=== PATIENT | male | born 1960 | race Caucasian/White ===

== ENCOUNTER 2018-12-06 09:17 | Outpatient (CLI) | payer BC ==
[2018-12-06 10:44] LABS: ALT ALANINE AMINOTRANSFERASE 41 IU/L (10-60); AST ASPARTATE AMINOTRANSFERASE 37 IU/L (10-42); BUN - BLOOD UREA NITROGEN 17 mg/dL (6-20); CARBON DIOXIDE - CO2 28 mmol/L (21-32); CHLORIDE 107 mmol/L (101-111); CHOL/HDL RATIO 4.7 (<5.0); CHOLESTEROL 169 mg/dL; CREATININE 0.9 mg/dL (0.6-1.2); GFR - MDRD 86 (>89); HDL CHOLESTEROL 36 mg/dL; LDL CHOLESTEROL,CALCULATED 85 mg/dL; LDL/HDL RATIO 2.4 (<3.6); SODIUM 141 mmol/L (135-145); VLDL CHOLESTEROL 48 mg/dL
== END 2018-12-06 09:18 | disposition home or self-care (01) ==
LOC: LAB 09:17
PROVIDERS: ATTEND Internal Medicine Cardiovascular Disease
DX: E78.49 Other hyperlipidemia (principal); I10 Essential (primary) hypertension
CPT/HCPCS: 36415; 80051; 80061; 81599; 82172; 82565; 83721; 84450; 84460; 84520

== ENCOUNTER 2019-02-14 16:07 | Outpatient (CLI) | payer BC | END 2019-02-14 16:08 | disposition home or self-care (01) | LOC: LAB 16:07 | PROVIDERS: ATTEND Internal Medicine Cardiovascular Disease | DX: I10 Essential (primary) hypertension (principal) | CPT/HCPCS: 36415; 80051; 82565; 84520 ==

== ENCOUNTER 2020-03-05 17:23 | Outpatient (CLI) | payer BC | END 2020-03-05 17:24 | disposition home or self-care (01) | LOC: COV 17:23 | PROVIDERS: ATTEND Family Medicine | DX: R05 Cough (principal); R06.02 Shortness of breath; R53.83 Other fatigue; R09.81 Nasal congestion; R11.0 Nausea; Z20.828 Contact with and (suspected) exposure to other viral communicable diseases ==

== ENCOUNTER 2020-03-17 08:40 | Outpatient (CLI) | payer BC ==
[2020-03-17 09:44] LABS: ALT ALANINE AMINOTRANSFERASE 47 IU/L (10-60); AST ASPARTATE AMINOTRANSFERASE 43 IU/L (10-42); BUN - BLOOD UREA NITROGEN 18 mg/dL (6-20); CARBON DIOXIDE - CO2 24 mmol/L (21-32); CHLORIDE 104 mmol/L (101-111); CHOL/HDL RATIO 4.7 (<5.0); CHOLESTEROL 154 mg/dL; CREATININE 0.8 mg/dL (0.6-1.2); HDL CHOLESTEROL 33 mg/dL; LDL CHOLESTEROL,CALCULATED 67 mg/dL; SODIUM 137 mmol/L (135-145); VLDL CHOLESTEROL 54 mg/dL
== END 2020-03-17 08:41 | disposition home or self-care (01) ==
LOC: LAB 08:40
PROVIDERS: ATTEND Internal Medicine Cardiovascular Disease
DX: E78.49 Other hyperlipidemia (principal); I10 Essential (primary) hypertension
CPT/HCPCS: 36415; 80051; 80061; 81599; 82172; 82565; 83721; 84450; 84460; 84520

== ENCOUNTER 2020-06-10 06:59 | Outpatient (CLI) | payer BC | END 2020-06-10 07:00 | disposition home or self-care (01) | LOC: LAB 06:59 | PROVIDERS: ATTEND Urology | DX: N52.8 Other male erectile dysfunction (principal) | CPT/HCPCS: 36415; 84403 ==

== ENCOUNTER 2020-07-01 08:27 | Outpatient (CLI) | payer BC ==
[2020-07-01 09:00] LABS: HGB - HEMOGLOBIN 15.8 g/dL (14.0-18.0)
[2020-07-01 09:34] LABS: THYROID STIMULATING HORMONE 4.54 uIU/mL (0.34-5.60)
[2020-07-01 09:40] LABS: PROLACTIN 7.7 ng/mL
[2020-07-01 10:03] LABS: FOLLICLE STIMULATING HORMONE 3.61 mIU/mL
== END 2020-07-01 08:28 | disposition home or self-care (01) ==
LOC: LAB 08:27
PROVIDERS: ATTEND Urology
DX: R79.89 Other specified abnormal findings of blood chemistry (principal)
CPT/HCPCS: 36415; 81599; 82670; 83001; 84146; 84402; 84403; 84443; 85014; 85018

== ENCOUNTER 2021-04-04 07:27 | Outpatient (CLI) | payer BC ==
[2021-04-04 07:45] LABS: BASOPHILS # (AUTO) 0.1 10^3/uL (0.0-0.1); BASOPHILS % (AUTO) 1.2 %; EOSINOPHILS # (AUTO) 0.3 10^3/uL (0.0-0.7); EOSINOPHILS % (AUTO) 3.1 %; HCT - HEMATOCRIT 46.9 % (42.0-52.0); HGB - HEMOGLOBIN 16.2 g/dL (14.0-18.0); LYMPHOCYTES # (AUTO) 2.4 10^3/uL (1.5-3.5); LYMPHOCYTES % (AUTO) 24.8 %; MEAN CORPUSCULAR HEMOGLOBIN 30.1 pg (27.0-31.0); MEAN CORPUSCULAR HGB CONC 34.5 g/dL (32.0-36.0); MEAN PLATELET VOLUME 8.9 fL (7.4-11.4); MONOCYTES # (AUTO) 0.7 10^3/uL (0.0-1.0); MONOCYTES % (AUTO) 7.7 %; NEUTROPHILS % (AUTO) 62.8 %; PLT - PLATELET COUNT 255 10^3/uL (130-450); RED BLOOD COUNT 5.39 10^6/uL (4.70-6.10); RED CELL DISTRIBUTION WIDTH 12.5 % (12.0-15.0); WHITE BLOOD COUNT 9.5 x10^3/uL (4.8-10.8)
[2021-04-04 08:01] LABS: ALBUMIN 4.1 g/dL (3.2-5.5); ALBUMIN/GLOBULIN RATIO 1.1 (1.0-2.2); ALKALINE PHOSPHATASE 41 IU/L (42-121); ALT ALANINE AMINOTRANSFERASE 50 IU/L (10-60); AST ASPARTATE AMINOTRANSFERASE 41 IU/L (10-42); BILIRUBIN,TOTAL 0.7 mg/dL (0.2-1.0); BUN - BLOOD UREA NITROGEN 16 mg/dL (6-20); CALCIUM 8.8 mg/dL (8.5-10.3); CARBON DIOXIDE - CO2 24 mmol/L (21-32); CHLORIDE 104 mmol/L (101-111); CHOL/HDL RATIO 5.7 (<5.0); CHOLESTEROL 201 mg/dL; GFR - MDRD 76 (>89); GLUCOSE 130 mg/dL (70-100); HDL CHOLESTEROL 35 mg/dL; LDL CHOLESTEROL,CALCULATED 86 mg/dL; LDL/HDL RATIO 2.5 (<3.6); POTASSIUM 4.1 mmol/L (3.5-5.0); SODIUM 137 mmol/L (135-145); TOTAL PROTEIN 7.7 g/dL (6.7-8.2); TRIGLYCERIDES 399 mg/dL; VLDL CHOLESTEROL 80 mg/dL
[2021-04-04 08:12] LABS: THYROID STIMULATING HORMONE 2.75 uIU/mL (0.34-5.60)
[2021-04-04 08:15] LABS: FREE T4 (FREE THYROXINE) 0.72 ng/dL (0.58-1.64)
== END 2021-04-04 07:28 | disposition home or self-care (01) ==
LOC: LAB 07:27
PROVIDERS: ATTEND Internal Medicine Cardiovascular Disease
DX: E03.9 Hypothyroidism, unspecified (principal); I25.10 Atherosclerotic heart disease of native coronary artery without angina pectoris; I25.83 Coronary atherosclerosis due to lipid rich plaque; I10 Essential (primary) hypertension
CPT/HCPCS: 36415; 80053; 80061; 81599; 83721; 84439; 84443; 85025

== ENCOUNTER 2021-08-03 16:41 | Emergency (ER) | payer BC ==
--- NOTE | 2021-08-03 17:07 | ED Physician Documentation ---
PD HPI LOWER EXT INJURY - Stated complaint Stated Complaint: R LEG PX,SWELLING - Chief complaint Chief Complaint: Ext Problem - History obtained from History obtained from: Patient - Additional information Additional information: 61-year-old gentleman with no history of DVT or PE but with some history of heart problems presents with right leg pain and swelling starting yesterday. He felt some pain in the right popliteal fossa and later in the hamstring. His noted asymmetry of the legs and some discoloration. No shortness of breath or chest pain. No recent travel or immobilizations or surgeries. Review of Systems Constitutional: reports: Reviewed and negative Eyes: reports: Reviewed and negative Ears: reports: Reviewed and negative Nose: reports: Reviewed and negative Cardiac: reports: Reviewed and negative Respiratory: reports: Reviewed and negative PD PAST MEDICAL HISTORY - Present Medications Home Medications: Ambulatory Orders Medication Instructions Recorded Confirmed Amlodipine Besylate [Norvasc] 10 mg PO DAILY 08/03/21 08/03/21 Candesartan Cilexetil 32 mg PO DAILY 08/03/21 08/03/21 Ezetimibe [Zetia] 10 mg PO DAILY 08/03/21 08/03/21 Levothyroxine [Synthroid] 100 mcg PO DAILY 08/03/21 08/03/21 Metoprolol Succinate [Kapspargo 50 ng PO DAILY 08/03/21 08/03/21 Sprinkle] Rivaroxaban [Xarelto] 15 mg PO BID 21 Days #42 tablet 08/03/21 Rosuvastatin Calcium [Crestor] 40 mg PO DAILY 08/03/21 08/03/21 Ubidecarenone [Co Q-10] 10 mg PO DAILY 08/03/21 08/03/21 hydroCHLOROthiazide [Hydrodiuril] 25 mg PO DAILY 08/03/21 08/03/21 - Allergies Allergies/Adverse Reactions: Allergies Allergy/AdvReac Type Severity Reaction Status Date / Time No Known Drug Allergies Allergy Verified 08/03/21 16:51 PD ED PE NORMAL - Vitals Vital signs reviewed: Yes - General General: Alert and oriented X 3, No acute distress - HEENT HEENT: Other (Abnormality of the right eye from a prior injury) - Neck Neck: Supple, no meningeal sign, No bony TTP - Cardiac Cardiac: RRR, No murmur - Respiratory Respiratory: No respiratory distress, Clear bilaterally - Extremities Extremities: Other (He does have asymmetric edema of the right leg greater than the left with some slightly brawny discoloration. No cellulitis. Is not tender.) - Neuro Neuro: Alert and oriented X 3, Normal speech Results - Vitals Vitals: Vital Signs - 24 hr 08/03/21 16:49 Temperature 36 C L Heart Rate 91 Respiratory 16 Rate Blood Pressure 161/89 H O2 Saturation 97 Oxygen O2 Source Room air PD MEDICAL DECISION MAKING - ED course ED course: 61-year-old gentleman with new onset DVT of the right leg confirmed on ultrasound. Started on Xarelto. Really nothing in the history to suggest why this happened so recommended he follow-up with his physician for consideration of referral to hematology oncology. Departure - Departure Disposition: Home, Self Care Clinical Impression: Right leg DVT Qualifiers: Affected thrombotic vein of extremity: femoral Chronicity: acute Qualified Code(s): I82.411 - Acute embolism and thrombosis of right femoral vein Condition: Good Record reviewed to determine appropriate education?: Yes Instructions: ED DVT Prescriptions: Rivaroxaban [Xarelto] 15 mg PO BID 21 Days #42 tablet Comments: As discussed, you do have a deep venous thrombosis of the right leg from the femoral vein and distal. I am starting you on Xarelto. The dose is higher for the first 3 or 3 weeks. You need to follow-up with your primary care physician in that timeframe for a refill at a different dose. Also recommend considering discussion of oncology/hematology referral with your primary. Return for new or worsening symptoms.
[2021-08-03] MEDS ORDERED: RIVAROXABAN 15 MG TABLET PO STA ×2 (18:04→18:25)
--- NOTE | 2021-08-03 18:11 | Ultrasound Report ---
PROCEDURE: Duplex Ext Veins Right INDICATIONS: RLE pain TECHNIQUE: Real-time imaging, as well as color and pulse Doppler interrogation, were performed of the lower extr emity deep veins from the inguinal ligament to the popliteal fossa. COMPARISON: None. FINDINGS: Extensive right lower extremity deep venous thrombosis is seen, beginning within the distal right femoral vein and continuing through the popliteal vein. The calf veins also appear to be invol biju, yet they are not well seen. Within the anterior lateral knee, there is a superficial fluid collection that measures 6.1 x 6.2 x 3 .7 cm. IMPRESSION: Extensive right lower extremity deep venous thrombosis can be seen. There is a fluid collection seen within the region of the knee, which may related to a knee joint eff usion. Note: Concordant preliminary findings given by the law professor upon the completion of the examination to the patient's nurse. Reviewed by: Benjamin Sarah MD on 08/03/2021 5:10 PM ALYSA Approved by: Benjamin Sarah MD on 08/03/2021 5:10 PM ALYSA Station ID: [id number]
[2021-08-03 18:42] VITALS: BP 149/86
== END 2021-08-03 18:41 | disposition home or self-care (01) ==
LOC: ED 16:41
DX: I82.411 Acute embolism and thrombosis of right femoral vein (principal)
CPT/HCPCS: 93971; 99284; A9270

== ENCOUNTER 2021-08-04 16:43 | Emergency (ER) | payer BC ==
--- NOTE | 2021-08-04 17:32 | ED Physician Documentation ---
PD HPI LOWER EXT INJURY - Stated complaint Stated Complaint: RIGHT LEG & SIDE PX - Chief complaint Chief Complaint: Ext Problem - History obtained from History obtained from: Patient - History of Present Illness PD HPI LOW EXT INJURY LOCATION: Right, Knee, Lower leg Type of injury: No: Fall, Twist Associated symptoms: Swelling, Discolored (some redness) Contributing factors: Anticoagulated (started yesterday and took this AM dose as well.) Recently seen: Emergency Dept (seen yesterday with leg pain and Dx with DVT, started on anticoag. Having some right low back pain today and here for recheck. Leg pain is slightly worse too. No chest pain nor dyspnea.) Review of Systems Constitutional: denies: Fever, Chills Cardiac: denies: Chest pain / pressure, Palpitations Respiratory: denies: Dyspnea, Cough GI: denies: Abdominal Pain, Nausea, Vomiting, Diarrhea, Bloody / black stool Skin: denies: Rash, Lesions Musculoskeletal: reports: Back pain (today, lower right). denies: Neck pain Neurologic: denies: Focal weakness, Numbness PD PAST MEDICAL HISTORY - Past Medical History Cardiovascular: Hypertension, High cholesterol, Coronary artery disease Respiratory: None Neuro: None Endocrine/Autoimmune: HyPOthyroidism GI: None : None HEENT: Chronic vision loss Psych: None Musculoskeletal: None Derm: None - Past Surgical History Past Surgical History: Yes General: Appendectomy Ortho: Knee replacement Cardiovascular: Coronary stent - Present Medications Home Medications: Ambulatory Orders Medication Instructions Recorded Confirmed Amlodipine Besylate [Norvasc] 10 mg PO DAILY 08/03/21 08/03/21 Candesartan Cilexetil 32 mg PO DAILY 08/03/21 08/03/21 Ezetimibe [Zetia] 10 mg PO DAILY 08/03/21 08/03/21 Levothyroxine [Synthroid] 100 mcg PO DAILY 08/03/21 08/03/21 Metoprolol Succinate [Kapspargo 50 ng PO DAILY 08/03/21 08/03/21 Sprinkle] Rivaroxaban [Xarelto] 15 mg PO BID 21 Days #42 tablet 08/03/21 Rosuvastatin Calcium [Crestor] 40 mg PO DAILY 08/03/21 08/03/21 Ubidecarenone [Co Q-10] 10 mg PO DAILY 08/03/21 08/03/21 hydroCHLOROthiazide [Hydrodiuril] 25 mg PO DAILY 08/03/21 08/03/21 - Allergies Allergies/Adverse Reactions: Allergies Allergy/AdvReac Type Severity Reaction Status Date / Time No Known Drug Allergies Allergy Verified 08/04/21 16:52 - Social History Does the pt smoke?: No Smoking Status: Never smoker Does the pt drink ETOH?: Yes Does the pt have substance abuse?: No - Immunizations Immunizations are current?: Yes PD ED PE NORMAL - Vitals Vital signs reviewed: Yes - General General: Alert and oriented X 3, Well developed/nourished - Neck Neck: Supple, no meningeal sign, No adenopathy - Cardiac Cardiac: RRR, No murmur - Respiratory Respiratory: Clear bilaterally - Abdomen Abdomen: Soft, Non tender - Back Back: No CVA TTP, No spinal TTP - Derm Derm: Normal color, Warm and dry, No rash Results - Vitals Vitals: Oxygen O2 Source Room air - Labs Labs: Laboratory Tests 08/04/21 08/04/21 08/04/21 18:04 18:17 18:17 WBC 12.5 H RBC 4.85 Hgb 14.5 Hct 42.4 MCV 87.4 MCH 29.9 MCHC 34.2 RDW 12.2 Plt Count 147 MPV 9.4 Neut # (Auto) 9.6 H Lymph # (Auto) 1.7 [place] # (Auto) 1.0 Eos # (Auto) 0.1 Baso # (Auto) 0.1 Absolute Nucleated RBC 0.00 Nucleated RBC % 0.0 Sodium 137 Potassium 3.9 Chloride 100 L Carbon Dioxide 26 Anion Gap 11.0 BUN 18 Creatinine 1.1 Estimated GFR (MDRD) 68 L Glucose 132 H Calcium 8.7 Total Bilirubin 1.2 H AST 33 ALT 37 Alkaline Phosphatase 49 Total Protein 7.7 Albumin 4.1 Globulin 3.6 Albumin/Globulin Ratio 1.1 Lipase 41 Urine Color DARK YELLOW Urine Clarity CLEAR Urine pH 5.5 Ur Specific [place] >=1.030 H Urine Protein 30 H Urine Glucose (UA) NEGATIVE Urine Ketones TRACE Urine Occult Blood SMALL H Urine Nitrite NEGATIVE Urine Bilirubin NEGATIVE Urine Urobilinogen 0.2 (NORMAL) Ur Leukocyte Esterase NEGATIVE Urine RBC 0-5 Urine WBC 0-3 Ur Squamous Epith Cells FEW Squamous Urine Bacteria Rare Urine Mucus Few Strands Ur Microscopic Review INDICATED Urine Culture Comments NOT INDICATED PD MEDICAL DECISION MAKING - ED course Complexity details: reviewed old records (ED visit yesterday), reviewed results, considered differential (has pain develping low right lumbar, somewhat below CVA area. Not in chest and not pleuritic, so does not seem PE. He is having increased pain in lower leg as well, with edema. Does not appear excessive edema/tightness. consider low back muscle pain due to gait change with leg pain. ), d/w patient Departure - Departure Disposition: Home, Self Care Clinical Impression: Right leg DVT, Low back pain Condition: Stable Record reviewed to determine appropriate education?: Yes Follow-Up: BELTRAN MIRANDA DO [Primary Care Provider] - Comments: At this point I do not get a sense of anything more serious going on with your low back pain symptoms. The pain and swelling in the leg makes sense with a DVT. I would continue with your current anticoagulants/blood thinner. Use Tylenol every 4-6 hours regularly over the next several days to week. Elevate and rest the leg often. Otherwise activity as tolerated. Recheck if not improving over the next several days and return if worse, in particular increasing pain, any chest pain or trouble breathing, fevers, other concerns. Discharge Date/Time: 08/04/21 19:06
[2021-08-04 18:17] LABS: BILIRUBIN,URINE NEGATIVE (NEGATIVE); GLUCOSE, URINE (UA) NEGATIVE (NEGATIVE); KETONES,URINE (UA) TRACE mg/dL (NEGATIVE); LEUKOCYTE ESTERASE, URINE NEGATIVE (NEGATIVE); NITRITE,URINE NEGATIVE (NEGATIVE); OCCULT BLOOD,URINE SMALL (NEGATIVE); PH,URINE 5.5 PH (5.0-7.5); PROTEIN,URINE 30 mg/dL (NEGATIVE); UROBILINOGEN,URINE 0.2 (NORMAL) E.U./dL (NORMAL)
[2021-08-04 18:19] LABS: CLARITY,URINE CLEAR (CLEAR)
[2021-08-04 18:21] LABS: BASOPHILS # (AUTO) 0.1 10^3/uL (0.0-0.1); BASOPHILS % (AUTO) 0.5 %; EOSINOPHILS # (AUTO) 0.1 10^3/uL (0.0-0.7); HCT - HEMATOCRIT 42.4 % (42.0-52.0); HGB - HEMOGLOBIN 14.5 g/dL (14.0-18.0); LYMPHOCYTES # (AUTO) 1.7 10^3/uL (1.5-3.5); LYMPHOCYTES % (AUTO) 13.3 %; MEAN CORPUSCULAR HEMOGLOBIN 29.9 pg (27.0-31.0); MEAN CORPUSCULAR HGB CONC 34.2 g/dL (32.0-36.0); MEAN CORPUSCULAR VOLUME 87.4 fL (80.0-94.0); MEAN PLATELET VOLUME 9.4 fL (7.4-11.4); MONOCYTES % (AUTO) 8.2 %; NEUTROPHILS # (AUTO) 9.6 10^3/uL (1.5-6.6); NEUTROPHILS % (AUTO) 76.7 %; PLT - PLATELET COUNT 147 10^3/uL (130-450); RED BLOOD COUNT 4.85 10^6/uL (4.70-6.10); RED CELL DISTRIBUTION WIDTH 12.2 % (12.0-15.0); WHITE BLOOD COUNT 12.5 x10^3/uL (4.8-10.8)
[2021-08-04 18:27] LABS: BACTERIA,URINE Rare /HPF (None Seen); MUCUS,URINE Few Strands; RBC,URINE 0-5 /HPF (0-5); SQUAMOUS EPITHELIAL CELL,UR FEW Squamous (<= Few); WBC,URINE 0-3 /HPF (0-3)
[2021-08-04 18:35] LABS: ALBUMIN 4.1 g/dL (3.2-5.5); ALBUMIN/GLOBULIN RATIO 1.1 (1.0-2.2); BILIRUBIN,TOTAL 1.2 mg/dL (0.2-1.0); CALCIUM 8.7 mg/dL (8.5-10.3); CREATININE 1.1 mg/dL (0.6-1.2); POTASSIUM 3.9 mmol/L (3.5-5.0); TOTAL PROTEIN 7.7 g/dL (6.7-8.2)
[2021-08-04] MEDS ORDERED: ACETAMINOPHEN 325 MG TABLET PO STA (18:53)
[2021-08-04 19:03] VITALS: BP 170/98
== END 2021-08-04 19:06 | disposition home or self-care (01) ==
LOC: ED 16:43
DX: I82.4Z1 Acute embolism and thrombosis of unspecified deep veins of right distal lower extremity (principal); I10 Essential (primary) hypertension
CPT/HCPCS: 36415; 80053; 81001; 83690; 85025; 99282; 99283; A9270; 81003; 87086

== ENCOUNTER 2021-12-22 12:50 | Emergency (ER) | payer BC ==
--- NOTE | 2021-12-22 14:26 | ED Physician Documentation ---
PD HPI OPHTHO - Stated complaint Stated Complaint: LOSS OF VISION - Chief complaint Chief Complaint: Heent - History obtained from History obtained from: Patient - History of Present Illness Timing - onset: Today Timing - duration: Minutes (3) Timing - details: Abrupt onset Pain level max: 0 Pain level now: 0 Location: Left - Additional information Additional information: 61-year-old male states that he felt like he was looking through a fogged window for about 3 minutes with his left eye today. He states that this is now fully resolved. This is happened 3-4 times in the past 3 to 4 weeks. He has not followed up with an baking assistant. He states that he has poor vision in his right eye because the lens was removed from that eye. He is on Xarelto for history of DVT. He states he is on "heart medication" as well. He does not know the names of his medication. Denies any trauma. No fevers. No chills. No focal neurological deficits. Review of Systems Constitutional: denies: Fever, Chills Respiratory: denies: Cough GI: denies: Nausea, Vomiting, Diarrhea Skin: denies: Rash Musculoskeletal: denies: Neck pain, Back pain Neurologic: denies: Generalized weakness, Focal weakness, Numbness, Syncope, Confused, Headache, Head injury PD PAST MEDICAL HISTORY - Past Medical History Cardiovascular: Hypertension, High cholesterol, Coronary artery disease Respiratory: None Neuro: None Endocrine/Autoimmune: HyPOthyroidism GI: None : None HEENT: Chronic vision loss Psych: None Musculoskeletal: None Derm: None - Past Surgical History Past Surgical History: Yes General: Appendectomy Ortho: Knee replacement Cardiovascular: Coronary stent - Present Medications Home Medications: Ambulatory Orders Medication Instructions Recorded Confirmed Candesartan Cilexetil 32 mg PO DAILY 08/03/21 12/22/21 Ezetimibe [Zetia] 10 mg PO DAILY 08/03/21 12/22/21 Levothyroxine [Synthroid] 100 mcg PO DAILY 08/03/21 12/22/21 Metoprolol Succinate [Kapspargo 50 ng PO DAILY 08/03/21 12/22/21 Sprinkle] Rivaroxaban [Xarelto] 15 mg PO BID 21 Days #42 tablet 08/03/21 12/22/21 Rosuvastatin Calcium [Crestor] 40 mg PO DAILY 04/30/22 09/18/22 Ubidecarenone [Co Q-10] 10 mg PO DAILY 08/03/21 12/22/21 hydroCHLOROthiazide [Hydrodiuril] 25 mg PO DAILY 08/03/21 12/22/21 - Allergies Allergies/Adverse Reactions: Allergies Allergy/AdvReac Type Severity Reaction Status Date / Time No Known Drug Allergies Allergy Verified 12/22/21 13:00 - Social History Does the pt smoke?: No Smoking Status: Never smoker Does the pt drink ETOH?: Yes Does the pt have substance abuse?: No - Immunizations Immunizations are current?: Yes PD ED PE NORMAL - Vitals Vital signs reviewed: Yes - General General: Alert and oriented X 3, No acute distress, Well developed/nourished - HEENT HEENT: Moist mucous membranes, Other (Unable to fully visualize the fundus of the left eye. Intraocular pressure of 20. Ultrasound reveals debris in the posterior chamber of the eye, no discrete retinal detachment that I can see.) - Neck Neck: Supple, no meningeal sign - Cardiac Cardiac: RRR - Respiratory Respiratory: No respiratory distress, Clear bilaterally - Derm Derm: Warm and dry - Extremities Extremities: Normal ROM s pain - Neuro Neuro: Alert and oriented X 3, office support 2-12 intact, No motor deficit, No sensory deficit, Normal speech Eye Opening: Spontaneous Motor: Obeys Commands Verbal: Oriented GCS Score: 15 - Psych Psych: Normal mood, Normal affect - Free text exam Free text exam: NIHSS 0 Results - Vitals Vitals: Vital Signs - 24 hr 12/22/21 12/22/21 12:53 14:42 Temperature 36.6 C 36.7 C Heart Rate 74 78 Respiratory 18 18 Rate Blood Pressure 141/74 H 150/90 H O2 Saturation 97 99 Oxygen O2 Source Room air PD MEDICAL DECISION MAKING - ED course Complexity details: considered differential, d/w patient, d/w family ED course: 61-year-old male with transient left thigh vision changes earlier today. Concern for potential retinal detachment. 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 He states the vision today was like looking through a foggy window. He could still see light and shapes. He is asymptomatic here. Normal intraocular pressure. Ultrasound of the eye reveals debris in the posterior chamber. We will have him follow-up with ophthalmology tomorrow for repeat evaluation and further care. Patient counseled regarding signs and symptoms for which I believe and urgent re- evaluation would be necessary. Patient with good understanding of and agreement to plan and is comfortable going home at this time This document was made in part using voice recognition software. While efforts are made to proofread this document, sound alike and grammatical errors may occur. Departure - Departure Disposition: 01 Home, Self Care Clinical Impression: Transient visual loss of left eye Condition: Good Instructions: ED Blurred Vision Follow-Up: BELTRAN MIRANDA DO [Primary Care Provider] - Anatoly Valderrama MD [Provider Admit Priv/Credential] - Tomorrow Comments: Please follow-up with ophthalmology tomorrow for repeat evaluation. Your intraocular pressure is normal today. Your ultrasound of your eye appears to sh ow a large amount of debris in the back of the eye. You are not to drive until released by ophthalmology. Return if you worsen. Discharge Date/Time: 12/22/21 14:42
[2021-12-22 14:47] VITALS: BP 150/90
== END 2021-12-22 14:42 | disposition home or self-care (01) ==
LOC: ED 12:50
DX: H53.122 Transient visual loss, left eye (principal)
CPT/HCPCS: 99281; 99283

== ENCOUNTER 2022-07-21 15:56 | Outpatient (CLI) | payer BC ==
[2022-07-21 16:20] LABS: BASOPHILS # (AUTO) 0.1 10^3/uL (0.0-0.1); BASOPHILS % (AUTO) 1.1 %; EOSINOPHILS # (AUTO) 0.3 10^3/uL (0.0-0.7); EOSINOPHILS % (AUTO) 2.6 %; HCT - HEMATOCRIT 41.4 % (42.0-52.0); HGB - HEMOGLOBIN 13.9 g/dL (14.0-18.0); LYMPHOCYTES # (AUTO) 2.6 10^3/uL (1.5-3.5); LYMPHOCYTES % (AUTO) 25.6 %; MEAN CORPUSCULAR HEMOGLOBIN 29.3 pg (27.0-31.0); MEAN CORPUSCULAR HGB CONC 33.6 g/dL (32.0-36.0); MEAN CORPUSCULAR VOLUME 87.2 fL (80.0-94.0); MEAN PLATELET VOLUME 9.7 fL (7.4-11.4); NEUTROPHILS # (AUTO) 6.2 10^3/uL (1.5-6.6); NEUTROPHILS % (AUTO) 60.4 %; PLT - PLATELET COUNT 126 10^3/uL (130-450); RED BLOOD COUNT 4.75 10^6/uL (4.70-6.10); RED CELL DISTRIBUTION WIDTH 12.6 % (12.0-15.0); WHITE BLOOD COUNT 10.3 x10^3/uL (4.8-10.8)
[2022-07-21 16:36] LABS: ALBUMIN 4.3 g/dL (3.2-5.5); ALBUMIN/GLOBULIN RATIO 1.2 (1.0-2.2); BILIRUBIN,TOTAL 0.8 mg/dL (0.2-1.0); CALCIUM 8.9 mg/dL (8.5-10.3); CREATININE 1.1 mg/dL (0.6-1.2); TOTAL PROTEIN 7.9 g/dL (6.7-8.2)
== END 2022-07-21 15:57 | disposition home or self-care (01) ==
LOC: LAB 15:56
PROVIDERS: ATTEND Internal Medicine Hematology & Oncology
DX: R58 Hemorrhage, not elsewhere classified (principal); Z79.01 Long term (current) use of anticoagulants
CPT/HCPCS: 36415; 80053; 85025

== ENCOUNTER 2022-07-21 16:18 | Emergency (ER) | payer BC ==
[2022-07-21] MEDS ORDERED: iohexoL-300 100 ML VIAL IVP ONE ×2 (16:19→21:31)
--- NOTE | 2022-07-21 16:49 | ED Physician Documentation ---
History of Present Illness - Stated complaint Stated Complaint: LT LEG PX - Chief complaint Chief Complaint: Ext Problem - Additonal information Additional information: 62-year-old male presents emergency department for evaluation of acute left calf pain. He was taking Xarelto for a hx of right leg DVT and minor stroke about 1 year ago. But he stopped taking it for 3 days due to having recurrent nosebleeds. 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 States he was walking up a hill today when he began having acute pain in the left calf. He states walking up this hill is not new for him. He does not have pain at rest. No new leg swelling. No fevers. No recent travel, surgery or immobilization. his theatrical trouper advised him to come to the ED to have an US to r/o DVT Review of Systems Constitutional: reports: Reviewed and negative Cardiac: reports: Reviewed and negative Respiratory: reports: Reviewed and negative Skin: reports: Reviewed and negative Musculoskeletal: reports: Extremity pain. denies: Extremity swelling, Joint swelling Neurologic: reports: Reviewed and negative Psychiatric: reports: Reviewed and negative PD PAST MEDICAL HISTORY - Past Medical History Cardiovascular: Hypertension, High cholesterol, Coronary artery disease Respiratory: None Neuro: None Endocrine/Autoimmune: HyPOthyroidism GI: None : None HEENT: Chronic vision loss Psych: None Musculoskeletal: None Derm: None - Past Surgical History Past Surgical History: Yes General: Appendectomy Ortho: Knee replacement Cardiovascular: Coronary stent - Present Medications Home Medications: Ambulatory Orders Medication Instructions Recorded Confirmed Candesartan Cilexetil 32 mg PO DAILY 08/03/21 12/22/21 Ezetimibe [Zetia] 10 mg PO DAILY 08/03/21 12/22/21 Levothyroxine [Synthroid] 100 mcg PO DAILY 08/03/21 12/22/21 Metoprolol Succinate [Kapspargo 50 ng PO DAILY 08/03/21 12/22/21 Sprinkle] Rivaroxaban [Xarelto] 15 mg PO BID 21 Days #42 tablet 08/03/21 12/22/21 Rosuvastatin Calcium [Crestor] 40 mg PO DAILY 08/03/21 12/22/21 Ubidecarenone [Co Q-10] 10 mg PO DAILY 08/03/21 12/22/21 hydroCHLOROthiazide [Hydrodiuril] 25 mg PO DAILY 08/03/21 12/22/21 - Allergies Allergies/Adverse Reactions: Allergies Allergy/AdvReac Type Severity Reaction Status Date / Time No Known Drug Allergies Allergy Verified 07/21/22 17:40 - Social History Does the pt smoke?: No Smoking Status: Never smoker Does the pt drink ETOH?: Yes Does the pt have substance abuse?: No - Immunizations Immunizations are current?: Yes PD ED PE NORMAL - General General: Alert and oriented X 3, No acute distress, Well developed/nourished (Obese) - Respiratory Respiratory: No respiratory distress, Clear bilaterally - Abdomen Abdomen: Normal bowel sounds, Soft - Extremities Extremities: No calf tenderness / cord (No tenderness with palpation of posterior calf bilaterally. No swelling or erythema noted. 2+ Right DP pulse. Non palpable left foot. monophasic doppler left foot. 2+ femoral pulse bilaterally.), Other (Left foot is mildly cold but has brisk cap refill. It is not cyanotic.) - Neuro Neuro: Alert and oriented X 3, vp cardiovascular service line 2-12 intact, No motor deficit Eye Opening: Spontaneous Motor: Obeys Commands Verbal: Oriented GCS Score: 15 Results - Vitals Vitals: Vital Signs - 24 hr 07/21/22 07/21/22 07/21/22 16:24 18:53 21:22 Temperature 36.2 C L Heart Rate 80 72 77 Respiratory 16 16 16 Rate Blood Pressure 165/64 H 127/85 H 132/81 H O2 Saturation 98 95 94 Oxygen O2 Source Room air - EKG (time done) 2052 EKG releavant findings:: EKG personally interpreted by author of this note. Relevant findings are: Rate: Rate (enter#) (77) Rhythm: NSR [place]: LAD Intervals: Normal ND. No: Prolonged QT QRS: Normal Ischemia: Normal ST segments Compare to prior EKG: Old EKG unavailable Computer interpretation: Agree with computer - Labs Labs: Laboratory Tests 07/21/22 07/21/22 19:10 19:10 WBC 10.1 RBC 4.69 L Hgb 13.7 L Hct 41.0 L MCV 87.4 MCH 29.2 MCHC 33.4 RDW 12.7 Plt Count 124 L MPV 9.4 Neut # (Auto) 6.2 Lymph # (Auto) 2.6 [place] # (Auto) 1.0 Eos # (Auto) 0.3 Baso # (Auto) 0.1 Absolute Nucleated RBC 0.00 Nucleated RBC % 0.0 Sodium 136 Potassium 3.9 Chloride 104 Carbon Dioxide 24 Anion Gap 8.0 BUN 24 H Creatinine 1.1 Estimated GFR (MDRD) 68 L Glucose 116 H Calcium 8.8 Total Bilirubin 0.8 AST 45 H ALT 47 Alkaline Phosphatase 44 Total Protein 8.1 Albumin 4.3 Globulin 3.8 Albumin/Globulin Ratio 1.1 Lipase 56 H - Rads (name of study) US DVT left leg Relevant Findings:: Other (Per chief cardiopulmonary technologist left SFA occlusion with good collateral flow. Negative for DVT) angio runoff Relevant Findings:: Final report received (Short segment occlusion of left SFA at abductor hiatus. Popliteal artery is opacified. Calf vessels reconstitute. Two-vessel runoff is seen in the ankle joints bilaterally. No high-grade stenosis or occlusion of the right lower extremity. Incidentals: hepatic steatosis right adrenal nodule) Procedures - General procedure General procedure: KENNETH: Left leg blood pressure 47/37. left arm blood pressure 131/86. KENNETH 0.35 Right leg blood pressure 151/85. Right arm blood pressure 130/83. KENNETH 0.86 PD Medical Decision Making - ED course Complexity details: reviewed results, re-evaluated patient, considered differential, d/w patient ED course: 62-year-old male presents to the emergency department for evaluation of acute left calf pain that occurred when walking up a hill today. Patient does have a history of previous DVT in the right leg as well as a minor stroke associated with that. He has been on Xarelto for the last year but had a brief pause in it for about 3 days due to nosebleeds. In consultation with his theatrical trouper oncologist today he was advised to come to the emergency department for DVT rule out in the left leg. CBC and electrolytes were completed in the emergency department. Per my personal evaluation there is no acute worrisome findings noted. In the emergency department on exam he has bilateral femoral pulses. The DP pulses easily palpated in the right leg though was absent in the left leg. However I could easily obtain a monophasic Doppler pulse. Subsequently an ultrasound ruled out a DVT in the left leg but there was an incidental finding of a superficial femoral artery occlusion with good collateral flow. With this information and the difficulty obtaining a good pulse in this foot we made the decision to consult with vascular surgery at [facility]. I had briefly spoken on the phone with Dr. Evans the consulting surgeon. As he suspects that this is likely a chronically developing arterial occlusion he requested ABIs to be performed. If the KENNETH in the left leg was less than 0.5 he would want to be notified to discuss if more emergent treatment would be necessary. Subsequent angio runoff of the lower extremities did show left superficial femoral artery occlusion. There appeared however to be two-vessel runoff in the ankle joints bilaterally. Given the abnormal ABIs Dr. Evans was again consulted at [facility]. He is going to arrange for the patient to be seen in his office on for evaluation of likely surgical intervention. He does request patient begin taking a daily 81 mg aspirin which I have advised the patient to do and have administered here in the ER. Patient is discharged home in stable condition. Emergent and worrisome return precautions were discussed. Departure - Departure Disposition: , Self Care Clinical Impression: Superficial femoral artery occlusion, Adrenal nodule, Hepatic steatosis Condition: Serious Record reviewed to determine appropriate education?: Yes Comments: Sage you came to the emergency department today because you had pain in your left calf. The ultrasound and CT imaging do not show a return of the blood clot in your vein however you do have a superficial occlusion of your left superficial femoral artery. This occlusion is something that will need to be seen by vascular surgery. I have spoken with Dr. Evans a vascular surgeon at [facility]. His office will be giving you a phone call tomorrow from a blocked or unlisted number. Please answer the phone. They plan to arrange follow-up for you to be seen on in clinic. It is likely that you will need stenting of this artery in order to preserve blood flow in the leg. Please begin taking a daily [address] Evans's office is located on the fourth floor at [address] [place] [id number]. His corporate scheduler can be reached at [phone] If at any point you find that your left leg suddenly worsens, is present at rest, your leg becomes cold or blue/dusky in appearance return immediately to the ER.
[2022-07-21] MEDS ORDERED: iohexoL-300 100 ML VIAL ONE ×2 (19:17)
[2022-07-21 19:18] LABS: BASOPHILS # (AUTO) 0.1 10^3/uL (0.0-0.1); BASOPHILS % (AUTO) 0.8 %; EOSINOPHILS # (AUTO) 0.3 10^3/uL (0.0-0.7); EOSINOPHILS % (AUTO) 2.7 %; HGB - HEMOGLOBIN 13.7 g/dL (14.0-18.0); LYMPHOCYTES # (AUTO) 2.6 10^3/uL (1.5-3.5); LYMPHOCYTES % (AUTO) 25.8 %; MEAN CORPUSCULAR HEMOGLOBIN 29.2 pg (27.0-31.0); MEAN CORPUSCULAR HGB CONC 33.4 g/dL (32.0-36.0); MEAN CORPUSCULAR VOLUME 87.4 fL (80.0-94.0); MEAN PLATELET VOLUME 9.4 fL (7.4-11.4); MONOCYTES % (AUTO) 9.7 %; NEUTROPHILS # (AUTO) 6.2 10^3/uL (1.5-6.6); NEUTROPHILS % (AUTO) 60.7 %; PLT - PLATELET COUNT 124 10^3/uL (130-450); RED BLOOD COUNT 4.69 10^6/uL (4.70-6.10); RED CELL DISTRIBUTION WIDTH 12.7 % (12.0-15.0); WHITE BLOOD COUNT 10.1 x10^3/uL (4.8-10.8)
[2022-07-21 19:28] LABS: ALBUMIN 4.3 g/dL (3.2-5.5); ALBUMIN/GLOBULIN RATIO 1.1 (1.0-2.2); BILIRUBIN,TOTAL 0.8 mg/dL (0.2-1.0); CALCIUM 8.8 mg/dL (8.5-10.3); CREATININE 1.1 mg/dL (0.6-1.2); POTASSIUM 3.9 mmol/L (3.5-5.0); TOTAL PROTEIN 8.1 g/dL (6.7-8.2)
--- NOTE | 2022-07-21 19:41 | Ultrasound Report ---
PROCEDURE: Duplex Ext Veins Left INDICATIONS: L calf pain. Stopped xerelto on Thursday TECHNIQUE: Real-time imaging, as well as color and pulse Doppler interrogation, were performed of the lower extr emity deep veins from the inguinal ligament to the popliteal fossa. COMPARISON: None. FINDINGS: The deep veins are normally compressible, and free of intraluminal thrombus. Color and pu lse Doppler demonstrate normal phasic intraluminal flow. There is normal augmentation response to di stal compression maneuver. Incidental note of an occlusion in the mid superficial femoral artery with collateralization. There i s no arterial flow in the mid to distal femoral artery. Popliteal artery demonstrates pulsatility. IMPRESSION: 1. No DVT in the left lower extremity. 2. 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 3. Preliminary results given by the electrical instrument technician to the ordering provider immediately following the st udy. Reviewed by: Gloria Adrian MD on 07/21/2022 7:40 PM PDT Approved by: Gloria Adrian MD on 07/21/2022 7:40 PM PDT Station ID: [id number]
--- NOTE | 2022-07-21 21:12 | CT Report ---
PROCEDURE: ANGIO ABD RUNOFF W/WO - B/L INDICATIONS: SFA occlusion seen on US CONTRAST: 125mL Omni 300 TECHNIQUE: After the administration of intravenous contrast, 2 and 5 mm sections acquired from T12 to the feet, with optional delayed image acquisition from the knees to the feet. 3-dimensional maximum intensity projection (MIP) coronal and sagittal reformats, and/or 3-dimensional volume rendering reformatting w as then performed. For radiation dose reduction, the following was used: automated exposure control , adjustment of mA and/or kV according to patient size. COMPARISON: Same-day ultrasound FINDINGS: Image quality: Good Lower chest: Bibasilar mild airspace disease and atelectasis. Small hiatal hernia. Solid organs: Suspected hepatic steatosis. Gallbladder is unremarkable. No pathologic dilation of the biliary tree or pancreatic duct. No splenomegaly. Indeterminate right 1.8 cm adrenal nodule. No hydr onephrosis. There are renal cysts. Lymph nodes: No pathologic adenopathy by size criteria. Bowel and peritoneum: No evidence of acute bowel obstruction. No pathologic ascites. Body wall: Small fat-containing umbilical hernia. Pelvis: Bladder is unremarkable. Prostate is unremarkable. Bones: Degenerative changes. No acute or suspicious osseous finding. Vascular and bones: The main portal vein appears patent. No abdominal aortic aneurysm. The major mesenteric vessels are p atent. The aortoiliac system has mild atherosclerotic calcifications without high-grade stenosis. The bilateral common femoral arteries are patent. The right SFA, popliteal, TP trunk are patent. 2 vessels cross the ankle joint right. The peroneal ar ratna is not well seen. There is focal occlusion of the left SFA at the adductor hiatus, with reconstitution of short segment thereafter. The TP trunk is not opacified. The anterior tibialis is opacified. The posterior tibiali s and peroneal arteries reconstitutes at the level of the calf. 2 vessels cross the ankle joint. There are degenerative changes in the lower extremities without acute osseous finding. Right knee eff usion. IMPRESSION: Focal short segment occlusion of the left superficial femoral artery at the adductor hiatus. Poplitea l artery is opacified. The TP trunk is not opacified. The calf vessels reconstitute. No high-grade stenosis or occlusion of the right lower extremity. Two-vessel runoff is seen in the ankle joints bilaterally. Right knee joint effusion. Please note venous structures are not well evaluated on this study. Incidental abdominal findings: Steatosis. Indeterminate 1.8 cm right adrenal nodule, for which CT or MR adrenal protocol could be obtained. Likely infectious/inflammatory airspace disease at the lung ba ses, consider surveillance imaging. Reviewed by: Ab Mendieta MD on 07/21/2022 9:11 PM PDT Approved by: Ab Mendieta MD on 07/21/2022 9:11 PM PDT Station ID: [id number]
[2022-07-21] MEDS ORDERED: ASPIRIN CHEW 81 MG TABLET PO STA (21:54)
[2022-07-21 22:13] VITALS: BP 128/84
== END 2022-07-21 22:17 | disposition home or self-care (01) ==
LOC: ED 16:18
DX: I70.202 Unspecified atherosclerosis of native arteries of extremities, left leg (principal); E27.9 Disorder of adrenal gland, unspecified; K76.0 Fatty (change of) liver, not elsewhere classified; I10 Essential (primary) hypertension; E78.00 Pure hypercholesterolemia, unspecified; I25.10 Atherosclerotic heart disease of native coronary artery without angina pectoris; E03.9 Hypothyroidism, unspecified; Z86.718 Personal history of other venous thrombosis and embolism; Z79.899 Other long term (current) drug therapy; Z79.01 Long term (current) use of anticoagulants
CPT/HCPCS: 36415; 75635; 80053; 83690; 85025; 93005; 93971; 99284; A9270; Q9967